=== PATIENT | female | born 1940 ===

== ENCOUNTER 2017-04-20 02:55 | Outpatient (CLI) | payer MEDICARE, BC | END 2017-04-20 23:59 | disposition home or self-care (01) | LOC: DIABETIC 02:55 | PROVIDERS: ATTEND Internal Medicine | DX: E11.8 Type 2 diabetes mellitus with unspecified complications (principal) | CPT/HCPCS: G0108 ==

== ENCOUNTER 2017-08-23 04:16 | Outpatient (CLI) | payer MEDICARE, BC | END 2017-08-23 23:59 | disposition home or self-care (01) | LOC: DIABETIC 04:16 | PROVIDERS: ATTEND Internal Medicine | DX: E11.9 Type 2 diabetes mellitus without complications (principal) | CPT/HCPCS: G0108 ==